=== PATIENT | male | born 1995 | race Caucasian/White ===

== ENCOUNTER 2017-02-14 09:11 | Emergency (ER) | payer OTHER ==
[~2017-02-14] VITALS: Ht 170.1 cm; Wt 72.6 kg
== END 2017-02-14 11:34 | disposition home or self-care (01) ==
LOC: ED 09:11
DX: S01.81XA Laceration without foreign body of other part of head, initial encounter (principal); S09.90XA Unspecified injury of head, initial encounter; V49.9XXA Car occupant (driver) (passenger) injured in unspecified traffic accident, initial encounter; Y93.89 Activity, other specified; Y92.413 State road as the place of occurrence of the external cause; Y99.9 Unspecified external cause status